=== PATIENT | female | born 1995 | race Caucasian/White ===

== ENCOUNTER 2018-12-09 22:33 | Observation (INO) | payer MEDICARE ==
[2018-12-09 22:38] VITALS: BMI 34.3
--- NOTE | 2018-12-09 23:11 | PDOC ---
History of Present Illness - History of Present Illness Initial Comments: 12/09/18 23:11 Ms. Hendrix is a 23 yo female w/ pmh of newly diagnosed schizophrenia, discharged today from [facility] who presents to ED with complaints of contractions from labor. Patient taken to L&D floor and found to be not . Patient transferred to ER for further evaluation. Patient believes she is at this time. Unable to give more information other than that she was at the store today when she felt contractions start. No other complaints at this time. The patient denies chest pain, shortness of breath, headache and dizziness. Denies fever, chills, nausea, vomit, diarrhea and constipation. Denies dysuria, frequency, urgency and hematuria. <Kiet Caraballo - Last Filed: 12/10/18 01:53> <Ashlyn Francois - Last Filed: 12/10/18 19:03> - General Chief Complaint: Psychiatric Stated Complaint: "i think im " Time Seen by Provider: 12/09/18 23:10 Past History - Past Medical History COPD: No - Immunization History Immunization Up to Date: No - Suicide/Smoking/Psychosocial Hx Smoking History: Unknown if ever smoked Have you smoked in the past 12 months: No Information on smoking cessation initiated: No Hx Alcohol Use: No Drug/Substance Use Hx: No <Kiet Caraballo - Last Filed: 12/10/18 01:53> <Ashlyn Francois - Last Filed: 12/10/18 19:03> - Past Medical History Allergies/Adverse Reactions: Allergies Allergy/AdvReac Type Severity Reaction Status Date / Time acetaminophen [From Tylenol] Allergy Verified 12/09/18 20:38 Review of Systems - Review of Systems Comments:: 12/09/18 23:11 GENERAL/CONSTITUTIONAL: +Perceived contractions earlier today. No fever or chills. No weakness. HEAD, EYES, EARS, NOSE AND THROAT: No change in vision. No ear pain or discharge. No sore throat. CARDIOVASCULAR: No chest pain or shortness of breath RESPIRATORY: No cough, wheezing, or hemoptysis. GASTROINTESTINAL: No nausea, vomiting, diarrhea or constipation. GENITOURINARY: No dysuria, frequency, or change in urination. MUSCULOSKELETAL: No joint or muscle swelling or pain. No neck or back pain. SKIN: No rash NEUROLOGIC: No headache, vertigo, loss of consciousness, or change in strength/ sensation. ENDOCRINE: No increased thirst. No abnormal weight change HEMATOLOGIC/LYMPHATIC: No anemia, easy bleeding, or history of blood clots. ALLERGIC/IMMUNOLOGIC: No hives or skin allergy. <Kiet Caraballo - Last Filed: 12/10/18 01:53> *Physical Exam - Vital Signs Last Vital Signs Temp Pulse Resp BP Pulse Ox 98.2 F 82 16 118/76 100 12/09/18 22:35 12/09/18 22:35 12/09/18 22:35 12/09/18 22:35 12/09/18 22:35 - Physical Exam Comments: 12/09/18 23:11 GENERAL: Patient obese; flat affect. Awake, alert, and oriented to self, in no acute distress HEAD: No signs of trauma, normocephalic, atraumatic EYES: PERRLA, EOMI, sclera anicteric, conjunctiva clear ENT: Auricles normal inspection, hearing grossly normal, nares patent, oropharynx clear without exudates. Moist mucosa NECK: Normal ROM, supple, no lymphadenopathy, JVD, or masses LUNGS: No distress, speaks full sentences, clear to auscultation bilaterally HEART: Regular rate and rhythm, normal S1 and S2, no murmurs, rubs or gallops, peripheral pulses normal and equal bilaterally. ABDOMEN: Soft, nontender, normoactive bowel sounds. No guarding, no rebound. No masses EXTREMITIES: Normal inspection, Normal range of motion, no edema. No clubbing or cyanosis. NEUROLOGICAL: +Unable to obtain further. SKIN: Warm, Dry, normal turgor, no rashes or lesions noted. <Kiet Caraballo - Last Filed: 12/10/18 01:53> - Vital Signs Last Vital Signs Temp Pulse Resp BP Pulse Ox 98 F 73 18 123/66 99 12/10/18 15:35 12/10/18 15:35 12/10/18 15:35 12/10/18 15:35 12/10/18 15:35 <Ashlyn Francois - Last Filed: 12/10/18 19:03> ED Treatment Course - LABORATORY CBC & Chemistry Diagram: 12/09/18 23:34 12/09/18 23:34 <Joselito Caraballoorn - Last Filed: 12/10/18 01:53> - LABORATORY CBC & Chemistry Diagram: 12/09/18 23:34 12/09/18 23:34 - ADDITIONAL ORDERS Additional order review: 12/09/18 23:34 RBC 4.62 MCV 71.5 L MCHC 32.8 RDW 17.7 H MPV 7.8 Neutrophils % 51.4 Lymphocytes % 34.6 Monocytes % 7.6 Eosinophils % 5.4 H Basophils % 1.0 - Medications Given in the ED: ED Medications Discontinued Medications Generic Name Dose Route Start Last Admin Trade Name Davis PRN Reason Stop Dose Admin Haloperidol 10 mg 12/10/18 00:05 12/10/18 01:47 Haldol - PO 12/10/18 00:06 10 mg ONCE ONE Administration Quetiapine Fumarate 25 mg 12/10/18 00:05 12/10/18 01:47 Seroquel - PO 12/10/18 00:06 25 mg ONCE ONE Administration <Ashlyn Francois - Last Filed: 12/10/18 19:03> Medical Decision Making - Medical Decision Making 12/09/18 23:45 Ms. Hendrix is a 23 yo female w/ schizophrenia who presents with complaints of . Patient not however continues to believe she is despite negative exam. Patient unable to provide any other information at this time. Phone number given for patient next of kin contact not connected. Patient will be evaluated with basic labs as well as toxicology for acute process. Will admit patient for social work consult in AM to ensure safety at discharge as well as provide patient information for resources she may use to help. 12/10/18 01:49 Psychiatry consulted. Labs grossly wnl at this time. Patient signed out to Dr. García for further evaluation. Laboratory Results - last 24 hr 12/09/18 12/09/18 23:34 23:34 WBC 9.2 RBC 4.62 Hgb 10.8 Hct 33.0 MCV 71.5 L MCH 23.5 L MCHC 32.8 RDW 17.7 H Plt Count 398 MPV 7.8 Absolute Neuts (auto) 4.7 Neutrophils % 51.4 Lymphocytes % 34.6 Monocytes % 7.6 Eosinophils % 5.4 H Basophils % 1.0 Nucleated RBC % 0 Sodium 142 Potassium 3.9 Chloride 107 Carbon Dioxide 27 Anion Gap 7 L BUN 6 L Creatinine 0.6 Est GFR (CKD-EPI)AfAm 147.86 Est GFR (CKD-EPI)NonAf 127.58 Random Glucose 111 H Calcium 8.7 Total Bilirubin 0.3 AST 14 L ALT 34 Alkaline Phosphatase 93 Total Protein 7.0 Albumin 3.6 Salicylates < 1.7 L Acetaminophen < 2.0 L <Kiet Caraballo - Last Filed: 12/10/18 01:53> *DC/Admit/Observation/Transfer - Discharge Dispostion Decision to Admit order: Yes <Kiet Caraballo - Last Filed: 12/10/18 01:53> - Transfer to Acute Care Facility Receiving Facility: [facility] ([facility] @ [address] [place] [address]) Accepting Physician:: DR URI JIANG <Ashlyn Francois - Last Filed: 12/10/18 19:03> Diagnosis at time of Disposition: Schizophrenia Qualifiers: Schizophrenia type: unspecified Qualified Code(s): F20.9 - Schizophrenia, unspecified Psychosis Qualifiers: Psychosis type: other Qualified Code(s): F28 - Other psychotic disorder not due to a substance or known physiological condition - Discharge Dispostion Disposition: TRANSFER ACUTE CARE/OTHER HOSP
[2018-12-10 00:04] LABS: EOS % 5.4 % (0-4.5); HEMOGLOBIN 10.8 GM/dL (10.7-15.3); LYMPH % 34.6 % (8-40); MCH 23.5 pg (25.7-33.7); MCHC 32.8 g/dl (32.0-36.0); MEAN CELL VOLUME 71.5 fl (80-96); MEAN PLT VOLUME 7.8 fl (7.5-11.1); MONO % 7.6 % (3.8-10.2); NEUT % 51.4 % (42.8-82.8); PLATELET COUNT 398 K/MM3 (134-434); RBC 4.62 M/mm3 (3.60-5.2); RDW 17.7 % (11.6-15.6); WHITE BLOOD COUNT 9.2 K/mm3 (4.0-10.0)
[2018-12-10] MEDS ORDERED: HALOPERIDOL 5 MG TABLET (FP) PO ONE (00:05)
[2018-12-10] MEDS ORDERED: QUEtiapine FUMARATE 25 MG TABLET (FP) PO ONE (00:05)
[2018-12-10 00:40] LABS: ALBUMIN 3.6 g/dl (3.4-5.0); ALK PHOS 93 U/L (45-117); ANION GAP 7 MMOL/L (8-16); BILIRUBIN,TOTAL 0.3 mg/dL (0.2-1); BLOOD UREA NITROGEN 6 mg/dL (7-18); CALCIUM 8.7 mg/dL (8.5-10.1); CHLORIDE 107 mmol/L (98-107); CO2 27 mmol/L (21-32); CREATININE 0.6 mg/dL (0.55-1.3); GLUCOSE,RANDOM 111 mg/dL (74-106); POTASSIUM 3.9 mmol/L (3.5-5.1); SGOT/AST 14 U/L (15-37); SGPT/ALT 34 U/L (13-61); SODIUM 142 mmol/L (136-145)
[2018-12-10 00:51] LABS: COCAINE, UR NEGATIVE ng/ml (CUTOFF=300); METHADONE, UR NEGATIVE ng/ml (CUTOFF=300); OPIATES, URI NEGATIVE ng/ml (CUTOFF=300); PHENCYCLIDINE,URINE NEGATIVE ng/ml (CUTOFF=25); URINE AMPHETAMINES NEGATIVE ng/ml (CUTOFF=500); URINE BARBITURATES NEGATIVE ng/ml (CUTOFF=200); URINE BENZODIAZEPINES NEGATIVE ng/ml (CUTOFF=200)
--- NOTE | 2018-12-10 01:09 | PDOC ---
Documentation entered by Amalia Cardenas SCRIBE, acting as scribe for Ashlyn Francois MD. Ashlyn Francois MD: This documentation has been prepared by the Theresa bergeron Xhesika, SCRIBE, under my direction and personally reviewed by me in its entirety. I confirm that the documentation accurately reflects all work, treatment, procedures, and medical decision making performed by me. Attending Attestation - Resident Resident Name: Kiet Caraballo - ED Attending Attestation I have performed the following: I have examined & evaluated the patient, The case was reviewed & discussed with the resident, I agree w/resident's findings & plan, Exceptions are as noted - HPI HPI: 12/09/18 23:20 this 23 yo female has been taken to labor and delivery by ambulance because the pt stated she was in full term labor. However her test was found to be negative and she was sent to the emergency dept for evaluation . -she admits she has schizophrenia and today she picked up her medications for haldol bid and seroquel bid . Her prescriptions were written by Dr Rebolledo in the [facility] 12/09/18 23:51 The patient is a 23 year old female with a significant past medical history of schizophrenia who presents to our ED via EMS complaining of contractions from labor. As per EMS, the patient was taken to Labor and Delivery, was told she is not and was then brought to the ER for further evaluation. The patient insists she is and felt contractions when she went to the store today. Patient is unable to give further information The patient denies chest pain, shortness of breath or dizziness. The patient denies fever, chills, nausea, diarrhea or constipation. The patient denies dysuria, frequency, urgency or hematuria. Allergy: acetaminophen Surgical History: None reported Social History: None reported - Physicial Exam PE: 12/09/18 23:25 disheveled obese 23 yo female states she is despite negative test. She has a strange very flat affect and is a poor historian No fever, appears comfortable 12/09/18 23:26 head ncat neck supple,no bruits lungs cta b/l cvs [id number] abd protuberant,nontender extremities no edema skin warm and dry neuro alert,conversant,moving all extremities,no gross focal neuro deficits psych very flat affect,slow response times,poor historian 12/09/18 23:39 - Medical Decision Making 12/09/18 23:39 In going through her papers we found documentation from [facility] that she was just diagnosed with acute psychosis and had no known prior history of schizophrenia until this recent medical encounter she has 2 prescriptions for haldol and seroquel 12/10/18 00:21 Pt is a very poor historian ,unsure of her social circumstances Will need to have vp digital marketing social media and crm assess this patient for her needs, ? non domiciled 12/10/18 01:07
--- NOTE | 2018-12-10 02:00 | PDOC ---
*Physical Exam - Vital Signs Last Vital Signs Temp Pulse Resp BP Pulse Ox 98.2 F 82 16 118/76 100 12/09/18 22:35 12/09/18 22:35 12/09/18 22:35 12/09/18 22:35 12/09/18 22:35 ED Treatment Course - LABORATORY CBC & Chemistry Diagram: 12/09/18 23:34 12/09/18 23:34 - ADDITIONAL ORDERS Additional order review: Laboratory Results 12/09/18 23:34 Sodium 142 Potassium 3.9 Chloride 107 Carbon Dioxide 27 Anion Gap 7 L BUN 6 L Creatinine 0.6 Est GFR (CKD-EPI)AfAm 147.86 Est GFR (CKD-EPI)NonAf 127.58 Random Glucose 111 H Calcium 8.7 Total Bilirubin 0.3 AST 14 L ALT 34 Alkaline Phosphatase 93 Total Protein 7.0 Albumin 3.6 Salicylates < 1.7 L Acetaminophen < 2.0 L 12/09/18 23:34 RBC 4.62 MCV 71.5 L MCHC 32.8 RDW 17.7 H MPV 7.8 Neutrophils % 51.4 Lymphocytes % 34.6 Monocytes % 7.6 Eosinophils % 5.4 H Basophils % 1.0 - Medications Given in the ED: ED Medications Discontinued Medications Generic Name Dose Route Start Last Admin Trade Name Freq PRN Reason Stop Dose Admin Haloperidol 10 mg 12/10/18 00:05 12/10/18 01:47 Haldol - PO 12/10/18 00:06 10 mg ONCE ONE Administration Quetiapine Fumarate 25 mg 12/10/18 00:05 12/10/18 01:47 Seroquel - PO 12/10/18 00:06 25 mg ONCE ONE Administration Medical Decision Making - Medical Decision Making 12/10/18 02:00 Received sign out from resident Dr. Caraballo. In short, pt is a 23 y/o female with newly diagnosed schizophrenia. Was discharged from another hospital earlier today. Presented to this complaining of labor pains. Found to not be on L&D reardon and transferred to the ED. Is awaiting psychiatric consultation. Voicemail was left for Dr. Polk. Awaiting call back. No acute events reported since sign out. 12/10/18 07:00 Pt signed out to resident Dr. Segundo after she was verbally appraised of the pts HPI, current ED course, and plan of management. Will f/u on pending psychiatric consultation. *DC/Admit/Observation/Transfer Diagnosis at time of Disposition: Schizophrenia Qualifiers: Schizophrenia type: unspecified Qualified Code(s): F20.9 - Schizophrenia, unspecified - Referrals - Patient Instructions - Post Discharge Activity
--- NOTE | 2018-12-10 07:12 | PDOC ---
*Physical Exam - Vital Signs Last Vital Signs Temp Pulse Resp BP Pulse Ox 97.7 F 87 18 131/84 97 12/10/18 04:57 12/10/18 04:57 12/10/18 04:57 12/10/18 04:57 12/10/18 04:57 <Constance Segundo - Last Filed: 12/10/18 13:17> - Vital Signs Last Vital Signs Temp Pulse Resp BP Pulse Ox 98.1 F 71 18 115/72 99 12/10/18 11:22 12/10/18 11:22 12/10/18 11:22 12/10/18 11:22 12/10/18 11:22 <Meliton Oliveira - Last Filed: 12/10/18 14:05> ED Treatment Course - LABORATORY CBC & Chemistry Diagram: 12/09/18 23:34 12/09/18 23:34 - ADDITIONAL ORDERS Additional order review: Laboratory Results 12/09/18 23:34 Sodium 142 Potassium 3.9 Chloride 107 Carbon Dioxide 27 Anion Gap 7 L BUN 6 L Creatinine 0.6 Est GFR (CKD-EPI)AfAm 147.86 Est GFR (CKD-EPI)NonAf 127.58 Random Glucose 111 H Calcium 8.7 Total Bilirubin 0.3 AST 14 L ALT 34 Alkaline Phosphatase 93 Total Protein 7.0 Albumin 3.6 Salicylates < 1.7 L Acetaminophen < 2.0 L 12/09/18 23:34 RBC 4.62 MCV 71.5 L MCHC 32.8 RDW 17.7 H MPV 7.8 Neutrophils % 51.4 Lymphocytes % 34.6 Monocytes % 7.6 Eosinophils % 5.4 H Basophils % 1.0 - Medications Given in the ED: ED Medications Discontinued Medications Generic Name Dose Route Start Last Admin Trade Name Freq PRN Reason Stop Dose Admin Haloperidol 10 mg 12/10/18 00:05 12/10/18 01:47 Haldol - PO 12/10/18 00:06 10 mg ONCE ONE Administration Quetiapine Fumarate 25 mg 12/10/18 00:05 12/10/18 01:47 Seroquel - PO 12/10/18 00:06 25 mg ONCE ONE Administration <Constance Segundo - Last Filed: 12/10/18 13:17> - LABORATORY CBC & Chemistry Diagram: 12/09/18 23:34 12/09/18 23:34 - ADDITIONAL ORDERS Additional order review: 12/09/18 23:34 RBC 4.62 MCV 71.5 L MCHC 32.8 RDW 17.7 H MPV 7.8 Neutrophils % 51.4 Lymphocytes % 34.6 Monocytes % 7.6 Eosinophils % 5.4 H Basophils % 1.0 - Medications Given in the ED: ED Medications Discontinued Medications Generic Name Dose Route Start Last Admin Trade Name Davis PRN Reason Stop Dose Admin Haloperidol 10 mg 12/10/18 00:05 12/10/18 01:47 Haldol - PO 12/10/18 00:06 10 mg ONCE ONE Administration Quetiapine Fumarate 25 mg 12/10/18 00:05 12/10/18 01:47 Seroquel - PO 12/10/18 00:06 25 mg ONCE ONE Administration <Meliton Oliveira - Last Filed: 12/10/18 14:05> Medical Decision Making - Medical Decision Making 12/10/18 07:13 Patient signed out by 23 yo female w/ pmh of newly diagnosed schizophrenia, discharged yesterday from [facility] who presents to ED with pseudocyesis and pending psych evaluation and social work consult in AM to ensure safety at discharge as well as provide patient information for resources she may use to help. ED Course: Dr. Polk evaluated patient. patient will require inpatient admission will initiate transfer <Constance Segundo - Last Filed: 12/10/18 13:17> - Medical Decision Making 12/10/18 14:04 labs wnl, utox as noted. seen by psych, medically cleared for psychiatric transfer/admission. <Meliton Oliveira - Last Filed: 12/10/18 14:05> *DC/Admit/Observation/Transfer <Constance Segundo - Last Filed: 12/10/18 13:17> <Meliton Oliveira - Last Filed: 12/10/18 14:05> Diagnosis at time of Disposition: Schizophrenia Qualifiers: Schizophrenia type: unspecified Qualified Code(s): F20.9 - Schizophrenia, unspecified - Discharge Dispostion Disposition: TRANSFER ACUTE CARE/OTHER HOSP
--- NOTE | 2018-12-10 09:33 | CON.PSY ---
Psychiatry Consult Chief Complaint: 23 kristi old female just discharged from [facility] came to Er via [facility]n ambulance. patient claims that she is 9 months . Cece is not at trhis time, Patient is delusional and is not communicating well appears to be preoccupied and hallucinating. Symptoms: reports: Delusions, Hallucinations - Previous Psychiatric Treatment Outpatient: Less than 6 mos ago Inpatient: Within the last 12 months - Reason for Previous Treatment Reason for Previous Treatment: Psychotic Episode - Allergies Allergies: Allergies Allergy/AdvReac Type Severity Reaction Status Date / Time acetaminophen [From Tylenol] Allergy Verified 12/09/18 20:38 - Current Living Status Usual Living Arrangement: Alone - Current Mental Status Evaluation Appearance: Disheveled Attitude: Guarded - Affect Affect: Constrictive Appropriateness: Not Appropriate - Mood Mood: Depressed - Speech/Language Expressive: Delayed - Psychomotor Activity Psychomotor Activity: Slowed - Thought Process Thought Process: Circumstantial - Thought Content Delusions: Present Type: Somatic - Self Perception Self Perception: No Impairment - Cognition Attention: Diminished Orientation: Time Memory, Short Term: 2/3 Memory, Remote with Promptin/3 - Concentration Serial Sevens Intact: No Simple Calculations Intact: Yes - Abstraction Proverb Interpretation: Impaired Judgement: Severely Impaired - Insight Insight: Impaired - Impulse Control Impulse Control: Moderately Impaired - Suicidal Ideation Suicidal Ideation: No - Homicidal Ideation Homicidal Ideation: No Assessment/Plan 1) Patient is acutely Psychotic and delusional at this time, needs In Patient Psych Admission.
--- NOTE | 2018-12-10 13:31 | EKG ---
Test Reason : Blood Pressure : / mmHG Vent. Rate : 085 BPM Atrial Rate : 085 BPM P-R Int : 142 ms QRS Dur : 082 ms QT Int : 366 ms P-R-T Axes : 025 022 014 degrees QTc Int : 435 ms NORMAL SINUS RHYTHM NORMAL ECG NO PREVIOUS ECGS AVAILABLE Confirmed by MD EMMY, STEPHEN ([id number]) on 12/10/2018 1:31:40 PM Referred By: Confirmed By:STEPHEN BOOTH MD
[2018-12-10 19:17] VITALS: BP 105/63; PULSE 80
--- NOTE | 2018-12-10 20:13 | PDOC ---
*Physical Exam - Vital Signs Last Vital Signs Temp Pulse Resp BP Pulse Ox 98 F 80 18 105/63 98 12/10/18 15:35 12/10/18 19:15 12/10/18 19:15 12/10/18 19:15 12/10/18 19:15 - Physical Exam Comments: 12/10/18 20:12 Received sign out from Dr. Segundo. [facility] arrived at 20:10 to chart picker the patient. Records printed. ED Treatment Course - LABORATORY CBC & Chemistry Diagram: 12/09/18 23:34 12/09/18 23:34 - ADDITIONAL ORDERS Additional order review: 12/09/18 23:34 RBC 4.62 MCV 71.5 L MCHC 32.8 RDW 17.7 H MPV 7.8 Neutrophils % 51.4 Lymphocytes % 34.6 Monocytes % 7.6 Eosinophils % 5.4 H Basophils % 1.0 - Medications Given in the ED: ED Medications Discontinued Medications Generic Name Dose Route Start Last Admin Trade Name Freq PRN Reason Stop Dose Admin Haloperidol 10 mg 12/10/18 00:05 12/10/18 01:47 Haldol - PO 12/10/18 00:06 10 mg ONCE ONE Administration Quetiapine Fumarate 25 mg 12/10/18 00:05 12/10/18 01:47 Seroquel - PO 12/10/18 00:06 25 mg ONCE ONE Administration Medical Decision Making - Medical Decision Making Patient was [facility]. No complications arise. *DC/Admit/Observation/Transfer Diagnosis at time of Disposition: Schizophrenia Qualifiers: Schizophrenia type: unspecified Qualified Code(s): F20.9 - Schizophrenia, unspecified Psychosis Qualifiers: Psychosis type: other Qualified Code(s): F28 - Other psychotic disorder not due to a substance or known physiological condition - Discharge Dispostion Disposition: TRANSFER ACUTE CARE/OTHER HOSP - Referrals - Patient Instructions - Post Discharge Activity
[2018-12-10 20:27] VITALS: TEMP 97.9
== END 2018-12-10 20:18 | disposition short-term general hospital (02) ==
LOC: JER 22:33 → JERBED 12-10 00:26 → INTOOBSV 12-10 00:26
PROVIDERS: ADMIT Internal Medicine; ATTEND Internal Medicine
DX: F20.9 Schizophrenia, unspecified (principal); F28 Other psychotic disorder not due to a substance or known physiological condition; F22 Delusional disorders; E66.9 Obesity, unspecified; Z68.34 Body mass index [BMI] 34.0-34.9, adult
CPT/HCPCS: 36415; 80053; 80307; 84703; 85025; 93005; 93010; 99285-25; G0378